=== PATIENT | female | born 1940 | race Caucasian/White ===

== ENCOUNTER 2018-03-16 05:35 | Inpatient (IN) ==
[2018-03-10 16:40] LABS: Appearance,Urine HAZY; Bacteria,Urine 0 /hpf (0); Color,Urine AMBER; Glucose,Urine (UA) NEGATIVE (NEG); Ictotest,Urine NEG (NEG); Leukocyte Esterase,Urine NEG /uL (NEG); Mucus,Urine FEW /hpf (0); Protein,Urine 30 mg/dL (NEG); Specific Gravity,Urine 1.021 (1.000-1.035); Urine Blood NEG mg/dL (<0.03); Urine RBC 0 /hpf (0-1); Urine Squamous Epithelial Cell 2 /hpf (0-4); Urine WBC 0 /hpf (0-4)
[2018-03-10 17:54] LABS: Blood Urea Nitrogen 11 mg/dl (8-23)
[2018-03-10 18:07] LABS: Basophils # (Auto) 0 K/mcL (0.0-0.3); Basophils % (Auto) 0.5 % (0.0-2.0); Eosinophils # (Auto) 0.2 K/mcL (0.0-0.7); Eosinophils % (Auto) 2.5 % (0.0-7.0); Granulocytes % (Auto) 62.4 % (38.0-78.0); Lymphocytes # (Auto) 2.3 K/mcL (1.5-4.8); Lymphocytes % (Auto) 29.2 % (15.5-49.0); Mean Cell Volume 94.9 fL (80.0-100.0); Mean Corpuscular HGB Conc 33.2 g/dL (31.0-36.0); Mean Corpuscular Hemoglobin 31.5 pg (26.0-34.0); Monocytes # (Auto) 0.4 K/mcL (0.1-0.9); Monocytes % (Auto) 5.4 % (1.0-12.0); Platelet Count 235 K/mcL (140-440); RBC 4.53 M/mcL (4.00-5.20); Red Cell Distribution Width 13.3 % (11.5-14.5)
[~2018-03-16 05:35] MED LIST: PREGABALIN 75 MG CAPSULE PO SCH; ceFAZolin 1 GM VIAL IV SCH; oxyCODONE 10 MG TAB.ER.12H PO SCH
[2018-03-16] MEDS ORDERED: IPRATROPIUM/ALBUTEROL 3 ML AMPUL.NEB NEB ONE (07:03)
[2018-03-16] MEDS ORDERED: MIDAZOLAM 5 MG/5 ML VIAL IV ONE (07:40)
[2018-03-16] MEDS ORDERED: KETAMINE 100 MG/ML ML IV ONE (07:40)
[2018-03-16] MEDS ORDERED: PROPOFOL 200 MG/20 ML VIAL IV ONE (07:40)
[2018-03-16] MEDS ORDERED: fentaNYL 250 MCG/5 ML VIAL IV ONE (07:40)
[2018-03-16] MEDS ORDERED: ePHEDrine 50 MG/ML AMPUL IV ONE (07:40)
[2018-03-16] MEDS ORDERED: SUCCINYLCHOLINE 20 MG/ML ML IV ONE (07:40)
[2018-03-16] MEDS ORDERED: DEXAMETHASONE 10 MG/ML VIAL IV ONE (07:40)
[2018-03-16] MEDS ORDERED: LIDOCAINE HCL/PF 100 MG/5 ML SYRINGE IV ONE (07:40)
[2018-03-16] MEDS ORDERED: TRANEXAMIC ACID 1,000 MG/10 ML VIAL IV ONE ×2 (07:40→09:09)
[2018-03-16] MEDS ORDERED: PROMETHAZINE 25 MG/ML VIAL IV PRN (09:07)
[2018-03-16] MEDS ORDERED: FLUMAZENIL 0.1 MG/ML ML IV PRN (09:07)
[2018-03-16] MEDS ORDERED: NALOXONE HCL 0.4 MG/ML VIAL IV PRN (09:07)
[2018-03-16] MEDS ORDERED: HYDROmorphone 2 MG/ML VIAL IV PRN (09:07)
[2018-03-16] MEDS ORDERED: ONDANSETRON 4 MG/2 ML VIAL IV PRN (09:07)
[2018-03-16] MEDS ORDERED: IPRATROPIUM/ALBUTEROL 3 ML AMPUL.NEB NEB PRN ×2 (09:07→09:09)
[2018-03-16] MEDS ORDERED: METHOCARBAMOL 1,000 MG/10 ML VIAL IV PRN (09:07)
[2018-03-16] MEDS ORDERED: diphenhydrAMINE 50 MG/ML VIAL IV PRN (09:07)
[2018-03-16] MEDS ORDERED: ePHEDrine 50 MG/ML AMPUL IV PRN (09:07)
[2018-03-16] MEDS ORDERED: fentaNYL 100 MCG/2 ML VIAL IV PRN (09:07)
[2018-03-16] MEDS ORDERED: ACETAMINOPHEN 1,000 MG/100 ML BOTTLE IV ONE (09:07)
[2018-03-16] MEDS ORDERED: METOPROLOL TARTRATE 5 MG/5 ML VIAL IV PRN (09:07)
[2018-03-16] MEDS ORDERED: ATROPINE SULFATE 0.4 MG/ML VIAL IV PRN (09:07)
[2018-03-16] MEDS ORDERED: MEPERIDINE 25 MG/ML SYRINGE IV PRN (09:07)
[2018-03-16] MEDS ORDERED: BUPIVACAINE W/EPI 0.25% 50 ML VIAL IJ ONE (09:08)
--- NOTE | 2018-03-16 09:08 | Brief Operative Note ---
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
[2018-03-16] MEDS ORDERED: BENZOCAINE/MENTHOL 1 LOZENGE PO PRN (09:09)
[2018-03-16] MEDS ORDERED: MAGNESIUM HYDROXIDE 30 ML ORAL.SUSP PO PRN (09:09)
[2018-03-16] MEDS ORDERED: FLEETS ADULT ENEMA PR PRN (09:09)
[2018-03-16] MEDS ORDERED: BISACODYL 10 MG SUPP.RECT PR PRN (09:09)
[2018-03-16] MEDS ORDERED: POLYETHYLENE GLYCOL 3350 17 GM PACKET PO PRN (09:09)
[2018-03-16] MEDS ORDERED: SUMAtriptan SUCCINATE 50 MG TABLET PO PRN (09:13)
[2018-03-16] MEDS ORDERED: MELOXICAM 7.5 MG TABLET PO PRN (09:13)
[2018-03-16] MEDS ORDERED: traMADol 50 MG TABLET PO PRN (09:13)
[2018-03-16] MEDS ORDERED: LACTATED RINGERS 1,000 ML IV SCH (09:15)
--- NOTE | 2018-03-16 09:56 | General Surgery Progress Note ---
Surgical - Auxillary Note - Subjective Patient Information: Note initiated : 03/16/18 at 9:54 am Service Date, if different from initiated Date: [] Patient: Noemy Gaitan 78 y/o F admitted on 03/16/18 for Right Reverse Total Shoulder Arthroplasty. Chief Complaint: [] pt noted introp to have inverted T waves with a s.t rhythm. all other VS stable. obtained 12 lead EKG in pacu. slight st changes noted inferiorly. Pt asymptomatic in PACU. if no other events can follow up with OP cardiology.
--- NOTE | 2018-03-16 10:17 | Operative Note ---
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 PROCEDURE PERFORMED: Right reverse total shoulder arthroplasty placing a Biomet Comprehensive size 10 mini stem, a standard baseplate with a +5 polyethylene insert on a 36 glenosphere. SURGEON: Akil Jarrell M.D. AEROSPACE ENGINEER OFFICER ARMAMENT: Rashaun Griffith PA-C. ANESTHESIA: General. DRAINS: None. SPECIMENS: None. COMPLICATIONS: None. BLOOD LOSS: 150 mL. POSTOPERATIVE CONDITION: Stable. INDICATIONS FOR SURGERY: This is a 78-year-old female who has had longstanding right shoulder pain and weakness. Radiographs showed proximal migration of the humeral head with some early osteophyte formation. I believe she had an MRI that showed an absent rotator cuff with chronic findings. FINDINGS AT SURGERY: She did have absent rotator cuff. Bone quality was poor. Post implantation showed satisfactory stability and range of motion. PROCEDURE IN DETAIL: The patient had been seen preoperatively. Informed consent had been obtained after discussion of risks and benefits of surgery. Risks including, but not limited to, bleeding; infection, possibly requiring implant removal and prolonged IV antibiotics; injury to nerves, blood vessels, and other surrounding structures; anesthetic risks; incomplete or no resolution of symptoms; dislocation; fracture; possibility of needing further revision surgery. She understood these risks and wished to proceed. The correct operative site was marked, and the patient was taken to the operating room and general anesthesia induced. She was carefully positioned in the beach chair position and pressure points carefully padded. The right shoulder and upper extremity were then carefully prepped and draped in normal sterile fashion, and a time-out was performed verifying patient name, operative site, and plan. All skin surfaces were covered with Ioban and then a standard deltopectoral incision was made with a scalpel through skin and subcutaneous tissue. Irrisept was irrigated and blunt dissection was taken down onto the cephalic vein, and this was dissected laterally with the deltoid. Subdeltoid space was developed bluntly with finger dissection and then a Lemus deltoid retractor placed. The lateral edge of the conjoined tendon was identified and a blue handle retractor placed underneath. We then palpated the bicipital groove and opened this up. Her biceps tendon was absent. She did have some remaining subscapularis. We did a lesser tuberosity osteotomy and placed a traction stitch around it. We then dislocated the humeral head out anteriorly, and removed osteophytes. A hole was made in the proximal humerus and then we began hand reaming up to a size 10. We placed our cutting jig and placed this with 30 degrees of retroversion and then pinned the cutting block into place. We made our humeral head cut. We then used the broaches and broached up to a size 10. A small cut protector was placed and then the humerus was subluxed posteriorly and the glenoid exposed. Labrum was removed circumferentially and then the drill guide was used to drill a guide pin for the reamer. This was placed flush with the inferior glenoid and the guide with a 10 degree cranial tilt. We then reamed until we had cancellous bone along the inferior half and then opened a mini baseplate. We irrigated Irrisept in the glenoid, after a minute pulse lavage, and then impacted the baseplate. We then drilled our central hole and measured. This was 20 mm, so we went ahead and placed a 20 mm central screw. We then drilled and placed locking screws in the superior, inferior and posterior holes. The anterior hole did not have adequate bone stock to place a screw. We then placed the glenosphere trial, initially with no offset, and then redislocated the proximal humerus. Cup protector was removed and a standard baseplate trial was placed. The shoulder reduced very easily, so we went ahead and re-exposed the glenosphere and removed this. We went ahead and opened a 36 and placed this in C-inferior offset. Once this was impacted, this was then impacted then into the base plate. We then re-exposed the proximal humerus and retrialed with a +3. We then reduced still reasonably easy, so we went up to a +5. This reduced with better tension, so we went ahead and removed the humeral trial components. A 10 stem was opened. Humeral canal was irrigated with Irrisept, after a minute pulse lavaged with saline, and then we impacted the stem. We then assembled the baseplate and poly insert on the back table and then impacted this onto the stem. We reduced the shoulder again with satisfactory tension. Range of motion checked which was stable. Upon removing retractors, the cephalic vein did have a rent in it, and so we did have to coagulate this. We then did Irrisept irrigation, after a minute of waiting we pulse lavaged with saline. We then used #2 FiberWire through the bicipital groove after making some drill holes in it through the baseplate of the implant and then around the subscapularis. We repeated this with a second pass of the stitch creating a [id number]-daots over top. We then also used a free needle with our traction stitch and passed these through bone of the greater tuberosity to further reinforce the subscapularis repair. After this was completed, we then used #1 Vicryl running stitch to close the deltopectoral interval. Final Irrisept irrigation done, after a minute final pulse lavage, and then 2-0 Monocryl for subcutaneous and nathan for skin. Xeroform and sterile dressing were applied. Arm was placed in an abductor immobilizer and patient was awakened, extubated, and transferred to recovery in stable condition. [id number] Job ID: [id number] Doc ID: [id number] Akil Jarrell MD
--- NOTE | 2018-03-16 10:34 | XRay Report ---
CLINICAL INFORMATION: Reason for Exam:Post-OP Total Shoulder COMPARISON: None. FINDINGS: Total shoulder prostheses is anatomically aligned. Is no osseous abnormality. Periarticular soft tissues are seen as expected. IMPRESSION: Negative Interpreted and Authenticated by: Jesus Aaron 03/16/18
[2018-03-16] MEDS: KETOROLAC 15 MG/ML VIAL IV PRN (10:51)
[2018-03-16] MEDS: 0.9 % SODIUM CHLORIDE 1,000 ML IV SCH (10:52)
[2018-03-16] MEDS: oxyCODONE/APAP 5/325MG TABLET PO PRN ×3 (10:52→22:29)
[2018-03-16] MEDS: ONDANSETRON 4 MG/2 ML VIAL IV PRN ×2 (11:16→18:30)
[2018-03-16] MEDS: HYDROmorphone 2 MG/ML VIAL IV PRN ×3 (11:59→17:23)
[2018-03-16] MEDS: 0.9 % SODIUM CHLORIDE 10 ML SYRINGE IV SCH ×2 (13:23→22:30)
[2018-03-16] MEDS: ceFAZolin 1 GM VIAL IV SCH ×2 (14:39→23:08)
[2018-03-16] MEDS: OMEPRAZOLE 20 MG CAPSULE PO SCH (17:22)
[2018-03-16] MEDS: DOCUSATE SODIUM 100 MG CAPSULE PO SCH (20:23)
[2018-03-16] MEDS: ATENOLOL 50 MG TABLET PO SCH (20:23)
[2018-03-16] MEDS ORDERED: SIMVASTATIN 20 MG TABLET PO SCH (21:00)
[2018-03-16] MEDS ORDERED: SENNOSIDES 1 TABLET PO SCH (21:00)
[2018-03-17] MEDS: 0.9 % SODIUM CHLORIDE 1,000 ML IV SCH ×2 (00:22→12:00)
[2018-03-17] MEDS: HYDROmorphone 2 MG/ML VIAL IV PRN ×2 (00:24→08:52)
[2018-03-17] MEDS: oxyCODONE/APAP 5/325MG TABLET PO PRN ×2 (03:13→08:53)
[2018-03-17] MEDS: KETOROLAC 15 MG/ML VIAL IV PRN (04:46)
[2018-03-17] MEDS: 0.9 % SODIUM CHLORIDE 10 ML SYRINGE IV SCH (04:47)
[2018-03-17] MEDS ORDERED: LEVOTHYROXINE 100 MCG TABLET PO SCH (07:30)
[2018-03-17] MEDS: OMEPRAZOLE 20 MG CAPSULE PO SCH (07:38)
--- NOTE | 2018-03-17 07:58 | Discharge Summary ---
Providers - Providers Patient information: Note initiated : 03/17/18 at 7:51 am Service Date, if different from initiated Date: [] Patient: Noemy Gaitan 78 y/o F admitted on 03/16/18 for Right Reverse Total Shoulder Arthroplasty. Chief Complaint: [] Discharge date: 03/17/18 Hospitalization Hospital course: Pt was admitted for a R reverse total shoulder arthroplasty. Pt was admitted on the day of the procedure and transferred to the floor for IV pain meds, IV abx and PT. Pt discharged on post-op day 1. Was given appropriate pain meds. Will attend out-pt PT and f/u at [facility] in 2 weeks. Discharge diagnosis: R shoulder OA Exam - Exam Clean and dry: Yes Weight bearing status: none Ortho Discharge - TSA - Patient Instructions Diet: Regular Diet Activity: activity as tolerated Total Shoulder Protocol: Leave immobilizer in place except for bathing and ROM. Abduction pillow. Continue to wear sling until seen by physician. Codman Pendulum : These exercises use momentum produced by your body to move your shoulder joint. Bend your knees and shift your weight to your front leg, then back, allowing your arm to swing in the same directions. Using the same technique, alternately shift your weight between your right and left legs, allowing your arm to swing from side to side. These exercises are also performed in counterclockwise and clockwise circular motions. Typically these exercises are performed several times per day, for a set number repetitions or minutes, such as 20 times in a row or 5 minutes at a time. Dressing Care: May shower in 2 days - Follow Up Plan Follow Up Appointments: Pankaj Griffith PA-C [Physician [facility]] - 03/31/18 1:10 pm Disposition: Home, Self-Care Prognosis: Good Rehab Potential: Good Overall status at discharge: patient is progressing back to baseline - Orders For Discharge Prescriptions: HYDROmorphone HCL [Dilaudid] 2 mg PO Q4 #40 tab Pending Studies Resuscitation Status Full Code Diet Regular Diet Start WedMar 16 910 Atenolol (Tenormin) 25 mg PO BID [facility] Last Admin: 03/16/18 20:23 Dose: 25 mg Docusate Sodium (Colace) 100 mg PO BID [facility] Last Admin: 03/16/18 20:23 Dose: 100 mg Hydromorphone HCl (Dilaudid) 0 mg IV Q2HP PRN PRN Reason: PAIN LEVEL > 6 Last Admin: 03/17/18 00:24 Dose: 1 mg Admin: 03/16/18 17:23 Dose: 0.5 mg Admin: 03/16/18 14:39 Dose: 0.5 mg Admin: 03/16/18 11:59 Dose: 0.5 mg Sodium Chloride (Sodium Chloride 0.9%) 1,000 mls @ 75 mls/hr IV .[id number] [facility] Last Admin: 03/17/18 00:22 Dose: 75 mls/hr Infusion: 03/17/18 00:12 Dose: 75 mls/hr Admin: 03/16/18 10:52 Dose: 75 mls/hr Ketorolac Tromethamine (Toradol) 15 mg IV Q6HP PRN PRN Reason: Pain Stop: 03/18/18 09:11 Last Admin: 03/17/18 04:46 Dose: 15 mg Admin: 03/16/18 10:51 Dose: 15 mg Levothyroxine Sodium (Synthroid) 100 mcg PO ACB [facility] Last Admin: 03/17/18 07:38 Dose: 100 mcg Omeprazole (Prilosec) 40 mg PO BIDAC [facility] Last Admin: 03/17/18 07:38 Dose: 40 mg Admin: 03/16/18 17:22 Dose: 40 mg Ondansetron HCl (Zofran) 4 mg IV Q4HP PRN PRN Reason: Nausea And Vomiting Last Admin: 03/16/18 18:30 Dose: 4 mg Admin: 03/16/18 11:16 Dose: 4 mg Oxycodone/Acetaminophen (Percocet 5-325 Mg) 0 tab PO Q4HP PRN PRN Reason: PAIN LEVEL 3-6 Last Admin: 03/17/18 03:13 Dose: 2 tab Admin: 03/16/18 22:29 Dose: 2 tab Admin: 03/16/18 17:22 Dose: 2 tab Admin: 03/16/18 10:52 Dose: 2 tab Senna (Senokot) 2 tab PO HS [facility] Last Admin: 03/16/18 20:23 Dose: 2 tab Simvastatin (Zocor) 20 mg PO HS [facility] Last Admin: 03/16/18 20:24 Dose: 20 mg Sodium Chloride (Saline Flush) 10 ml IV Q8 [facility] Last Admin: 03/17/18 04:47 Dose: Not Given Admin: 03/16/18 22:30 Dose: Not Given Admin: 03/16/18 13:23 Dose: Not Given Shift Summary 03/17/18 04:31 Shift Summary by Kelle Lemon Slept off & on thru the night; shoulder pain would wake her up. PO meds twice, IV once. To BR w/SBA; she is unsteady when up. Had nausea tonight, especially when ambulating; no emesis. Zofran once. Shoulder dressing CDI; arm in immobilizer. Initialized on 03/17/18 04:31 - END OF NOTE
[2018-03-17] MEDS: ATENOLOL 50 MG TABLET PO SCH (08:51)
[2018-03-17] MEDS: DOCUSATE SODIUM 100 MG CAPSULE PO SCH (08:51)
[2018-03-17] MEDS ORDERED: Solifenacin Succinate [Vesicare] 10 mg Tab PO SCH (09:00)
[2018-03-17] MEDS ORDERED: LISINOPRIL 10 MG TABLET PO SCH (09:00)
[2018-03-17] MEDS ORDERED: MAGNESIUM OXIDE 400 MG TABLET PO SCH (09:00)
[2018-03-17] MEDS: ONDANSETRON 4 MG/2 ML VIAL IV PRN (11:05)
== END 2018-03-17 14:00 | disposition home or self-care (01) | DRG 483 ==
LOC: MEDSUR 05:35
PROVIDERS: ADMIT Orthopaedic Surgery; ATTEND Orthopaedic Surgery